=== PATIENT | male | born 1990 | race Caucasian/White ===

== ENCOUNTER 2018-06-25 21:19 | Emergency (ER) | payer SELFPAY ==
[~2018-06-25] VITALS: Ht 182.9 cm; Wt 86.2 kg
== END 2018-06-25 21:50 | disposition left against medical advice (07) ==
LOC: ER 21:19
DX: M79.601 Pain in right arm (principal); Z88.0 Allergy status to penicillin; Z88.8 Allergy status to other drugs, medicaments and biological substances; F17.200 Nicotine dependence, unspecified, uncomplicated
CPT/HCPCS: 99283

== ENCOUNTER 2018-06-26 18:04 | Emergency (ER) | payer SELFPAY | END 2018-06-26 18:27 | disposition left against medical advice (07) | LOC: ER 18:04 | DX: Z53.21 Procedure and treatment not carried out due to patient leaving prior to being seen by health care provider (principal) ==